=== PATIENT | male | born 1975 | race Caucasian/White ===

== ENCOUNTER 2018-05-01 16:54 | Emergency (ER) | payer OTHER ==
[~2018-05-01] VITALS: Ht 195.6 cm; Wt 102.1 kg
[2018-05-01] MEDS ORDERED: ASPIR 8181 MG PO (17:14)
[2018-05-01] MEDS ORDERED: PERCOCET 5-3251 EACH PO (18:23)
[2018-05-01] MEDS ORDERED: IBUPROFEN 800800 MG PO (18:23)
[2018-05-01 18:36] VITALS: BP 112/67
== END 2018-05-01 18:38 | disposition home or self-care (01) ==
LOC: M.ERS 16:54
DX: S41.011A Laceration without foreign body of right shoulder, initial encounter (principal); X58.XXXA Exposure to other specified factors, initial encounter; Y93.89 Activity, other specified; Y92.89 Other specified places as the place of occurrence of the external cause; Y99.8 Other external cause status